=== PATIENT | male | born 1960 | race Two or more races ===

== ENCOUNTER 2021-04-14 15:55 | Emergency (ER) | payer OTHER ==
[~2021-04-14] VITALS: Ht 170.2 cm; Wt 88.5 kg
[2021-04-14] MEDS ORDERED: ATORVASTATIN CA40 MG PO (16:22)
[2021-04-14] MEDS ORDERED: IBUPROFEN800 MG PO (17:52)
== END 2021-04-14 19:05 | disposition home or self-care (01) ==
LOC: ER 15:55
DX: S93.492A Sprain of other ligament of left ankle, initial encounter (principal); M79.672 Pain in left foot; X50.0XXA Overexertion from strenuous movement or load, initial encounter; Y93.01 Activity, walking, marching and hiking; Y92.69 Other specified industrial and construction area as the place of occurrence of the external cause; Y99.8 Other external cause status